=== PATIENT | female | born 1980 | race Caucasian/White ===

== ENCOUNTER 2020-09-26 07:53 | Outpatient (REF) | payer MEDICAID, SELFPAY | END 2020-09-26 07:54 | disposition home or self-care (01) | LOC: HO.LAB 07:53 | PROVIDERS: Visit Provider Internal Medicine | DX: Z20.828 Contact with and (suspected) exposure to other viral communicable diseases (principal) | CPT/HCPCS: C9803; U0003 ==

== ENCOUNTER 2021-07-15 10:39 | Emergency (ER) | payer MEDICAID, SELFPAY ==
[2021-07-15 10:49] VITALS: BP 98/67; PULSE 90; RESP 16; TEMP 36.7; O2SAT 99; BMI 23.8
--- NOTE | 2021-07-15 11:18 | ED.SKABFB ---
HPI - Skin/Abscess/Foreign Bdy General Chief complaint: Skin/Abscess/Foreign Body Stated complaint: right leg infection Time Seen by Provider: 07/15/21 11:18 Source: patient Mode of arrival: ambulatory Limitations: no limitations History of Present Illness HPI narrative: Patient is here today for complaining of right lower leg redness and swelling. Patient reports that she was bitten by? Mosquito 2 days ago and scratched her leg. She woke up this morning and her lower leg is swollen and red. About 10 cm by 5 cm area red and warm to touch. Pinpoint Center flat were she was bit. Patient denies any other symptoms. MD complaint: insect bite/sting Onset (ago): day(s) (2) Location: RLE Severity: mild Quality: burning Related Data Previous Rx's Medication Instructions Recorded cephalexin 500 mg capsule 500 mg PO QID 7 Days #28 cap 07/15/21 doxycycline hyclate 100 mg capsule 100 mg PO BID #14 cap 07/15/21 Allergies Allergy/AdvReac Type Severity Reaction Status Date / Time No Known Allergies Allergy Verified 07/15/21 10:51 Review of Systems Review of Systems: Constitutional : No Weight loss, No Fever, No Chills, No Night Sweats, No Fatigue, No Malaise ENT/Mouth : No Hearing loss, No Ear Pain, No Nasal Congestion, No Sinus Pain, No Hoarseness, No sore throat, No Rhinorrhea, No Swallowing Difficulty Eyes: No Eye Pain, No Swelling, No Redness, No Foreign Body, No Discharge, No Vision Changes Cardiovascular : No Chest Pain, No SOB, No Dyspnea on Exertion, No Orthopnea, No Edema, No Palpitations Respiratory : No Cough, No Sputum, No Wheezing, No Smoke Exposure, No Dyspnea Gastrointestinal : No Nausea, No Vomiting, No Diarrhea, No Constipation, No abdominal Pain, No Hematochezia, No Melena Genitourinary : no irregular bleeding, No Dysuria, No Urinary Frequency, No Hematuria, No Urinary Incontinence, No Urgency, No Flank Pain, No Urinary Flow Changes, No Hesitancy Musculoskeletal : No joint pain, No Myalgias, No Joint Swelling Skin : No Skin Lesions, No rash, redness, swelling to right lower leg Neuro : No Weakness, No Numbness, No Paresthesias, No Loss of Consciousness, No Dizziness, No Headache Yes all other systems are reviewed and are negative PMFSH Past Medical History Medical History (Updated 07/15/21 @ 11:31 by Terrie Barillas [facility]) No known health problems Social History Social History Advance Directives: No Advance Directives Information Provided: No Patient : No Physical Exam Vital Signs: Vital Signs: Last Vital Signs Temp 98.0 F 07/15/21 10:49 Pulse 90 07/15/21 10:49 Resp 16 07/15/21 10:49 BP 98/67 07/15/21 10:49 Pulse Ox 99 07/15/21 10:49 Body Mass Index 23.8 Const: General: healthy appearing, no acute distress and well developed Nutritional Appearance: well nourished Orientation/consciousness: patient oriented x3 Neck: Neck: Yes normal visual inspection, Yes full ROM and Yes trachea midline Thyroid: Thyroid normal Resp: Auscultation: clear to auscultation bilaterally Cardio: Rate: regular rate Rhythm: regular rhythm GI: Inspection: Yes normal to inspection and No distended Palpation (GI): No hepatosplenomegaly present Auscultation: normal bowel sounds Skin: General skin exam: elasticity normal, turgor normal and dry skin Neuro: General: patient oriented x3 Extrem: Right upper extremity: normal to inspection, full ROM and normal capillary refill Left upper extremity: normal to inspection, full ROM and normal capillary refill Right lower extremity: full ROM, normal capillary refill, edema and lower leg Details: erythema, localized swelling and warmth Left lower extremity: normal to inspection, full ROM and normal capillary refill Course Course Course Narrative: 41-year-old female is here today for right lower leg redness after bug bite. Area is red and warm and flat with pinpoint Center crusted over no drainage. Will put patient on Keflex and doxycycline. Patient will follow-up with her PCP. She was instructed to return if her symptoms will get worse or if the swelling and redness increases or if there will be foul odor or drainage. She is agreeable to plan of care and verbalizes understanding. She was given the opportunity to ask questions all questions answered. Discharge Plan Discharge Clinical Impression: Cellulitis Patient Disposition: Home, Self-Care Instructions: Cellulitis (ED) Additional Instructions: You were seen here today after insect bite. Your skin has local inflammation/infection. You were started on antibiotics for 10 days. Please finish all of the antibiotics. One of the antibiotics ; doxycycline you must stay away from sun while you taking that medication. Please follow-up with your PCP in 2-3 days. You may return to emergency department if you will experience worsening symptoms or any additional concerning symptoms. Prescriptions: New doxycycline hyclate 100 mg capsule 100 mg PO BID Qty: 14 RF: 0 cephalexin 500 mg capsule 500 mg PO QID 7 Days Qty: 28 RF: 0
[2021-07-15] MEDS: cephALEXin 500 MG CAPSULE PO (11:31)
== END 2021-07-15 11:45 | disposition home or self-care (01) ==
PROVIDERS: Emergency Provider Emergency Medicine
DX: L03.115 Cellulitis of right lower limb (principal)
CPT/HCPCS: 99283

== ENCOUNTER 2021-08-30 15:03 | Outpatient (REF) | payer MEDICAID, SELFPAY | END 2021-08-30 15:04 | disposition home or self-care (01) | LOC: HO.LAB 15:03 | PROVIDERS: Visit Provider Internal Medicine | DX: Z20.822 Contact with and (suspected) exposure to COVID-19 (principal) | CPT/HCPCS: C9803; U0003; U0005 ==

== ENCOUNTER 2021-10-26 11:51 | Outpatient (REF) | payer MEDICAID, SELFPAY ==
[2021-10-26 12:40] LABS: COVID-19 Test Negative (Negative)
== END 2021-10-26 11:52 | disposition home or self-care (01) ==
LOC: HO.LAB 11:51
PROVIDERS: Visit Provider Internal Medicine
DX: Z20.822 Contact with and (suspected) exposure to COVID-19 (principal)
CPT/HCPCS: 36415; 87635; C9803